=== PATIENT | female | born 1945 | race Caucasian/White ===

== ENCOUNTER 2017-03-03 07:49 | Inpatient (IN) | payer MEDICARE, OTHER ==
[~2017-03-03] VITALS: Ht 167.6 cm; Wt 61.2 kg
--- NOTE | 2017-03-03 07:53 | NUR ---
BIB [facility]. PT IS A 71 Y/O FEMALE CAME FROM HOME. C/O RIGHT HIP PAIN S/P FALL APPROXIMATELY 30 MINS THIS MORNING, WHILE GARDENING. PT IS SPEAKING IN FULL SENTENCES. PAIN 10/10 VIA RIGHT HIP. MD HOUSE AT BEDSIDE AWARE/PERFORMING MSE AT THIS TIME. HX: HTN [NON-COMPLIANT WITH MEDICATION] WCTM PT. WAITING FOR FURTHER PLAN OF CARE
[2017-03-03] MEDS ORDERED: CHOL20004 PO (07:59)
[2017-03-03] MEDS ORDERED: MELA5TAB PO (07:59)
[2017-03-03] MEDS ORDERED: FLUO20CA36 PO (07:59)
[2017-03-03] MEDS ORDERED: ASPI81TA31 PO (07:59)
[2017-03-03] MEDS ORDERED: METO-306 PO (07:59)
[2017-03-03] MEDS ORDERED: HYDROMORPHONE 1 MG/1 ML DISP.SYRIN IV ONE (08:15)
[2017-03-03] MEDS ORDERED: ONDANSETRON 4 MG/2 ML VIAL IV ONE (08:15)
[2017-03-03] MEDS ORDERED: IV NORMAL SALINE 1000 ML BAG IV ONE (08:15)
[2017-03-03] MEDS ORDERED: HYDROMORPHONE 1 MG/1 ML DISP.SYRIN ONE (08:27)
[2017-03-03] MEDS ORDERED: ONDANSETRON 4 MG/2 ML VIAL ONE (08:27)
[2017-03-03 08:43] LABS: CREATININE 0.9 mg/dL (0.6-1.3); POTASSIUM 3.9 mmol/L (3.5-5.1)
[2017-03-03 08:49] LABS: BILIRUBIN,DIRECT 0.1 mg/dL (0.0-0.2); BILIRUBIN,TOTAL 0.5 mg/dL (0.2-1.0); TOTAL PROTEIN, SERUM 6.4 g/dL (6.4-8.2)
--- NOTE | 2017-03-03 08:57 | NUR ---
PT WENT TO CT WITH PRODUCT REPRESENTATIVE [employer]IA [employer]. NAD NOTED. VSS. PT APPEARS COMFORTABLE AT THIS TIME.
[2017-03-03 09:09] LABS: BASOPHILS % (AUTO) 0.2 % (0.0-2.0); EOSINOPHILS % (AUTO) 0.5 % (0.0-7.0); HEMATOCRIT 38.2 % (37-47); HEMOGLOBIN 12.7 G/DL (12.0-16.0); LYMPHOCYTES # (AUTO) 0.9 K/UL (0.8-4.8); LYMPHOCYTES % (AUTO) 13.9 % (20.5-51.5); MEAN CORPUSCULAR HGB CONC 33 g/dL (32.0-37.0); MEAN CORPUSCULAR VOLUME 99.1 FL (81.0-99.0); MONOCYTES # (AUTO) 0.5 K/UL (0.1-1.30); MONOCYTES % (AUTO) 7.8 % (0.0-11.0); NEUTROPHILS # (AUTO) 5.3 K/UL (1.8-8.9); NEUTROPHILS % (AUTO) 77.6 % (38.5-71.5); PLATELET COUNT (AUTO) 203 K/UL (150-450); RED BLOOD CELL COUNT(AUTO) 3.85 MIL/UL (4.2-5.4); WHITE BLOOD COUNT (AUTO) 6.7 K/UL (4.0-11.2)
--- NOTE | 2017-03-03 10:08 | NUR ---
ATTEMPTED TO AMBULATE PT PER MD HOUSE'S ORDER. HOWEVER, PT VERBALIZED, "I CAN'T HUN, I CAN'T". PT REFUSED TO AMBULATE AT THIS TIME. MD HOUSE IS AWARE. PT IS NOW PENDING MEDSURG ADMIT.
--- NOTE | 2017-03-03 10:15 | NUR ---
HOME MEDICATION ENVELOPED GIVEN TO PHARMACY PER HOSPITAL PROTOCOL. COPY OF ENVELOPE #[id number] IS IN THE CHART
--- NOTE | 2017-03-03 10:26 | NUR ---
PT IS READY TO MOVE-INPT HOWEVER, ATTEMPTED TO GET BED ASSIGNMENT AT THIS TIME, BUT UNABLE TO OBTAIN BED BECAUSE CHARGE NURSE IS CURRENTLY UNAVAILABLE. PENDING CALL BACK
--- NOTE | 2017-03-03 10:45 | NUR ---
REPORT GIVEN TO NOEL FUNES AWARE OF PT'S CURRENT CONDITION. WILL CONTINUE PLAN OF CARE
[2017-03-03 11:59] VITALS: BP 170/95
[2017-03-03] MEDS ORDERED: ONDANSETRON 4 MG/2 ML VIAL IV PRN (12:30)
[2017-03-03] MEDS ORDERED: ENALAPRILAT DIHYDRATE INJ 2.5 MG in IV NORMAL SALINE 50 ML IV PRN (12:30)
[2017-03-03] MEDS ORDERED: DIAZEPAM 10 MG/2 ML DISP.SYRIN IV PRN (12:30)
[2017-03-03] MEDS ORDERED: MAGNESIUM HYDROXIDE 30 ML LIQUID UDC PO PRN (12:30)
[2017-03-03] MEDS ORDERED: ACETAMINOPHEN 325 MG TABLET PO PRN (12:30)
[2017-03-03 12:54] VITALS: BP 141/72
[2017-03-03] MEDS: HYDROMORPHONE 1 MG/1 ML DISP.SYRIN IV PRN ×2 (13:00→19:45)
[2017-03-03] MEDS ORDERED: hydrALAZINE HCL 20 MG/1 ML VIAL IV PRN (13:00)
[2017-03-03] MEDS: IV 1/2NS 1000 ML 1,000 ML IV PRN (13:06)
--- NOTE | 2017-03-03 14:49 | NUR ---
REPORT RECEIVED FROM NOEL FUNES
[2017-03-03 15:59] VITALS: BP 133/78
--- NOTE | 2017-03-03 17:00 | NUR ---
PER MD ORDERS FOLLY CATHETER INSERTED.
[2017-03-03 20:00] VITALS: BP 150/89
[2017-03-03] MEDS: DOCUSATE SODIUM 100 MG CAPSULE PO SCH (21:00)
[2017-03-03] MEDS ORDERED: NITROGLYCERIN OINT 1 GM PACKET TP PRN (23:00)
[2017-03-04] MEDS: IV 1/2NS 1000 ML 1,000 ML IV PRN ×2 (03:29→18:22)
[2017-03-04 04:30] VITALS: BP 176/95
[2017-03-04] MEDS: HYDROMORPHONE 1 MG/1 ML DISP.SYRIN IV PRN ×5 (05:55→20:47)
--- NOTE | 2017-03-04 06:50 | NUR ---
PT SLEPT INTERMITTENTLY, IN NO ACUTE DISTRESS. PT C/O OF RIGHT HIP PAIN, PAIN MANAGEMENT GIVEN ORDERED, KEPT PT COMFORTABLE. IVF RUNNING, NO INFILTRATION NOTED. SAFETY MEASURES IN PLACE, CALL LIGHT WITHIN REACH, BED ALARM ON. WILL CONTINUE TO MONITOR.
[2017-03-04 06:56] LABS: BILIRUBIN,TOTAL 0.8 mg/dL (0.2-1.0); CREATININE 0.7 mg/dL (0.6-1.3); MAGNESIUM 1.9 mg/dL (1.8-2.4); PHOSPHOROUS 2.5 mg/dL (2.5-4.9); POTASSIUM 3.5 mmol/L (3.5-5.1); TOTAL PROTEIN, SERUM 6.1 g/dL (6.4-8.2)
[2017-03-04] MEDS ORDERED: PANTOPRAZOLE SODIUM 40 MG TABLET.DR PO SCH (07:00)
[2017-03-04 07:14] LABS: BASOPHILS % (AUTO) 0.4 % (0.0-2.0); EOSINOPHILS # (AUTO) 0.1 K/uL (0.0-0.7); EOSINOPHILS % (AUTO) 1.9 % (0.0-7.0); HEMATOCRIT 38.9 % (37-47); LYMPHOCYTES # (AUTO) 1.4 K/UL (0.8-4.8); LYMPHOCYTES % (AUTO) 23.9 % (20.5-51.5); MEAN CORPUSCULAR HEMOGLOBIN 33.5 UUG (27.0-31.0); MEAN CORPUSCULAR HGB CONC 33 g/dL (32.0-37.0); MEAN CORPUSCULAR VOLUME 100.2 FL (81.0-99.0); MONOCYTES # (AUTO) 0.4 K/UL (0.1-1.30); MONOCYTES % (AUTO) 7.1 % (0.0-11.0); NEUTROPHILS % (AUTO) 66.7 % (38.5-71.5); PLATELET COUNT (AUTO) 177 K/UL (150-450); RED BLOOD CELL COUNT(AUTO) 3.89 MIL/UL (4.2-5.4); WHITE BLOOD COUNT (AUTO) 5.9 K/UL (4.0-11.2)
[2017-03-04 07:21] LABS: THYROID STIMULATING HORMONE 2.049 mIU/mL (0.358-3.740)
[2017-03-04] MEDS ORDERED: CHOLECALCIFEROL 1,000 UNIT TABLET PO SCH (09:00)
[2017-03-04] MEDS ORDERED: FLUOXETINE HCL 20 MG CAPSULE PO SCH (09:00)
[2017-03-04] MEDS ORDERED: METOPROLOL SUCCINATE XL 100 MG TAB.SR.24H PO SCH (09:00)
[2017-03-04] MEDS ORDERED: Medication Not On Formulary EA (Cholecalciferol (Vitamin D3) (Vitamin D CAPSULE) 1 CAP) PO SCH (09:00)
[2017-03-04 12:08] VITALS: BP 145/88
--- NOTE | 2017-03-04 12:30 | NUR ---
PATIENT IN BED, COMPLAIN OF SEVERE PAIN 10/10 GENERALIZED. MEDICATION WAS GIVEN FOR COMFORT. I PROVIDED WITH ICE PACKS FOR HER TEMPORAL HEADACHE. PATIENT VERBALIZED EFFECTIVENESS. THORACIS CT SCAN WAS ORDERED BY DR. BARROW. PATIENT WILL BE MEDICATION BEFORE PROCEDURE. V/S WNL. WILL CONTINUE MONITORING.
[2017-03-04 16:10] VITALS: BP 138/85
[2017-03-04] MEDS ORDERED: NICOTINE 14 MG/24HR PATCH TD SCH (18:30)
--- NOTE | 2017-03-04 19:14 | NUR ---
PATIENT IN BED RESTING. NO S/S OF DISTRESS NOTED. C/O FO PAIN DURING THE DAY. MEDICATED ORDERED. RADIOLOGY CALLED FOR GIVE REPORT OF THE RESULTS, ELAINE TOOK REPORT AND NOTIFIED DR. WEBBER. DVT PUMPS ARE ON. NON AMBULATORY DUE TO HER PAIN. SAFETY AND COMFORT PROVIDED DURING THE DAY. WILL CONTINUE MONITORING.
[2017-03-04 20:00] VITALS: BP 144/87
[2017-03-04] MEDS: DOCUSATE SODIUM 100 MG CAPSULE PO SCH (20:42)
--- NOTE | 2017-03-04 21:05 | NUR ---
PATIENT SPOKE TO DR. OLSON, SHE IS GOING TO BE TRANSFERRED TO [facility], DR. REY WHO IS A NEUROLOGIST IS ACCEPTING HER CASE AND WILL SEE HER FOR FURTHER CARE. REPORT GIVEN TO MARIN RENTERIA FROM [facility]. TRANSFER AND DISCHARGE PROTOCOL FOLLOWED.
--- NOTE | 2017-03-04 22:06 | NUR ---
PATIENT COMPLAINED OF SEVERE PAIN. SHE IS ANXIOUS ABOUT BEING TRANSFERRED TO [facility]. ADMINISTERED 0.5 DILAUDID IVP.
[2017-03-04] MEDS ORDERED: HYDROMORPHONE 1 MG/1 ML DISP.SYRIN IV ONE (22:15)
[2017-03-04] MEDS ORDERED: HYDROMORPHONE 1 MG/1 ML DISP.SYRIN ONE (22:16)
--- NOTE | 2017-03-04 22:59 | NUR ---
RECEIVED PATIENT LAYING IN BED. ALERT AND ORIENTED X'S 4. PATIENT COMPLAINED OF PAIN, WILL REVIEW MEDICATIONS AND WILL GIVE ORDERED. SAFETY INITIATED. CALL LIGHT WITHIN REACH. WILL CONTINUE TO MONITOR.
== END 2017-03-04 22:50 | disposition short-term general hospital (02) | DRG 552 ==
LOC: ER 07:49 → MED 10:56
PROVIDERS: ADMIT Internal Medicine; ATTEND Internal Medicine
DX: S22.049A Unspecified fracture of fourth thoracic vertebra, initial encounter for closed fracture (principal); G62.9 Polyneuropathy, unspecified; W11.XXXA Fall on and from ladder, initial encounter; Y93.H2 Activity, gardening and landscaping; Y92.007 Garden or yard of unspecified non-institutional (private) residence as the place of occurrence of the external cause; I11.9 Hypertensive heart disease without heart failure; I25.10 Atherosclerotic heart disease of native coronary artery without angina pectoris; F17.210 Nicotine dependence, cigarettes, uncomplicated; Z79.82 Long term (current) use of aspirin; K57.90 Diverticulosis of intestine, part unspecified, without perforation or abscess without bleeding; D25.9 Leiomyoma of uterus, unspecified; Z87.442 Personal history of urinary calculi; M06.9 Rheumatoid arthritis, unspecified; Q76.5 Cervical rib; M51.24 Other intervertebral disc displacement, thoracic region; M51.16 Intervertebral disc disorders with radiculopathy, lumbar region; M50.30 Other cervical disc degeneration, unspecified cervical region; M48.06 Spinal stenosis, lumbar region; T14.8 Other injury of unspecified body region; J98.4 Other disorders of lung; T79.6XXA Traumatic ischemia of muscle, initial encounter
CPT/HCPCS: 36415; 70030-TC; 70450; 71010; 72125; 72131; 83605; 83735; 84100; 84443; 85025; 85730; 87040; 93005; A4663; J0360; J1170; J2405; J3360; J3490; J7030

== ENCOUNTER 2018-10-17 23:20 | Inpatient (IN) | payer MEDICARE, MEDICAID ==
[~2018-10-17] VITALS: Ht 165.1 cm; Wt 62.6 kg
[~2018-10-17 23:20] MED LIST: ASPI81TA31 PO; CHOL20004 PO; CLOP75TA15 PO; FLUO20CA36 PO; MELA5TAB PO; METO-358 PO
--- NOTE | 2018-10-17 23:50 | NUR ---
Pt ambulated to ER with c/o palpitations & nausea that started 2 hrs prior to arrival. Pt also states she had shortness of breath. Denies chest pain. Pt placed on monitoring analyst, showing atrial fibrillation w RVR. Notified . SA02 99% room air. Safety measures implemented. ER MD at bedside.
[2018-10-18] MEDS ORDERED: IV NORMAL SALINE 1000 ML BAG IV ONE
[2018-10-18] MEDS ORDERED: ONDANSETRON 4 MG/2 ML VIAL ONE ×2 (00:02→00:04)
[2018-10-18] MEDS ORDERED: DILTIAZEM HCL 25 MG IV ONE ×3 (00:02→00:47)
[2018-10-18 00:11] LABS: BASOPHILS % (AUTO) 0.7 % (0.0-2.0); EOSINOPHILS # (AUTO) 0.1 K/uL (0.0-0.7); EOSINOPHILS % (AUTO) 1.4 % (0.0-7.0); HEMATOCRIT 43.4 % (31.2-41.9); HEMOGLOBIN 14.9 g/dL (10.9-14.3); LYMPHOCYTES % (AUTO) 39.2 % (20.5-51.5); MEAN CORPUSCULAR HEMOGLOBIN 33.5 uug (24.7-32.8); MEAN CORPUSCULAR HGB CONC 34 g/dL (32.3-35.6); MEAN CORPUSCULAR VOLUME 97.7 fL (75.5-95.3); MONOCYTES # (AUTO) 0.5 K/uL (2.0-10.0); MONOCYTES % (AUTO) 10.2 % (0.0-11.0); NEUTROPHILS # (AUTO) 2.4 K/uL (1.8-8.9); NEUTROPHILS % (AUTO) 48.5 % (38.5-71.5); PLATELET COUNT (AUTO) 210 K/uL (179-408); RED BLOOD CELL COUNT(AUTO) 4.44 MIL/uL (3.63-4.92)
[2018-10-18] MEDS ORDERED: ONDANSETRON 4 MG/2 ML VIAL IV ONE (00:15)
[2018-10-18] MEDS ORDERED: DILTIAZEM HCL 25 MG IV IV ONE ×2 (00:15)
[2018-10-18 00:18] LABS: CARBON DIOXIDE 26 mmol/L (21-32); CHLORIDE 100 mmol/L (98-107); CREATININE 0.9 mg/dL (0.6-1.3); GLUCOSE 121 mg/dL (74-106); UREA NITROGEN, BLOOD 18 mg/dL (7-18)
[2018-10-18 00:42] LABS: ALANINE AMINOTRANSFERASE 39 U/L (14-59); ALKALINE PHOSPHATASE 117 U/L (50-136); ASPARTATE AMINOTRANSFERASE 40 U/L (15-37); BILIRUBIN,DIRECT 0.1 mg/dL (0.0-0.2); BILIRUBIN,TOTAL 0.3 mg/dL (0.2-1.0)
[2018-10-18] MEDS ORDERED: METO100T14 PO (00:44)
[2018-10-18] MEDS ORDERED: HYDR25TA4 PO (00:44)
[2018-10-18] MEDS ORDERED: DILTIAZEM HCL IV 125 MG in IV DEXTROSE 5% 100 ML IV PRN ×2 (00:45→01:15)
[2018-10-18] MEDS ORDERED: DILTIAZEM HCL 50 MG IV ONE (00:47)
--- NOTE | 2018-10-18 00:55 | NUR ---
Dr. Miri REMY MD speaking to Micah Fonseca NP, on telephone.
--- NOTE | 2018-10-18 01:06 | NUR ---
Pt. admitted to [facility] ([facility] BED 1) , under care of Micah Fonseca NP. Diagnosis: Atrial Fibrillation with RVR Belongs List completed Report given to nurse
[2018-10-18] MEDS ORDERED: POTASSIUM BICARBONATE/CIT AC 25 MEQ TABLET.EFF ONE (01:08)
[2018-10-18] MEDS ORDERED: POTASSIUM BICARBONATE/CIT AC 25 MEQ TABLET.EFF PO ONE (01:15)
[2018-10-18] MEDS ORDERED: ACETAMINOPHEN 325 MG TABLET PO PRN (01:15)
[2018-10-18] MEDS ORDERED: ONDANSETRON 4 MG/2 ML VIAL IV PRN (01:15)
[2018-10-18] MEDS ORDERED: MAGNESIUM HYDROXIDE 30 ML LIQUID UDC PO PRN (01:15)
[2018-10-18] MEDS ORDERED: HYDROCODONE/APAP 5-325MG TABLET PO PRN (01:15)
[2018-10-18] MEDS ORDERED: Z GUARD REMEDY PASTE 57 GM TUBE TOP PRN (01:15)
[2018-10-18] MEDS ORDERED: TEMAZEPAM 7.5 MG CAPSULE PO PRN (01:15)
[2018-10-18] MEDS ORDERED: DIGOXIN 500 MCG/2 ML AMP ONE (01:25)
[2018-10-18] MEDS ORDERED: DIGOXIN 500 MCG/2 ML AMP IV ONE (01:30)
--- NOTE | 2018-10-18 01:50 | NUR ---
Titrated Cardizem to 15 mg/hr per ER MD verbal order. see IV spreadsheet.
[2018-10-18 02:05] VITALS: BP 137/95
--- NOTE | 2018-10-18 02:05 | NUR ---
ADMITTED FROM ER VIA [facility], WITH ADMITTING DX OF ATRIAL FIBRILLATION WITH RVR. AWAKE, ALERT & ORIENTED X3. ON CARDIZEM DRIP @ 15 MG/HR ON RFA. PLACED ON O2 @ 2LNC W/ O2 SAT OF 100%. DENIES CHEST DISCOMFORTS. WATCHED PT CLOSELY.
--- NOTE | 2018-10-18 02:30 | NUR ---
DECREASED CARDIZEM DRIP TO 10MG/HR, HR-55/MIN, SR. THEN TO 5MG/HR @ 0245.
--- NOTE | 2018-10-18 02:50 | NUR ---
TURNED OFF CARDIZEM DRIP HR-53-55/MIN, SR, BP STABLE.
[2018-10-18 03:00] VITALS: BP 108/66
[2018-10-18 04:00] VITALS: BP 109/66
--- NOTE | 2018-10-18 06:00 | NUR ---
REMAINS SLEEPING. C-SCOPE SINUS JORDAN HR-48. BP STABLE.
[2018-10-18] MEDS: PANTOPRAZOLE SODIUM 40 MG TABLET.DR PO SCH (06:21)
[2018-10-18 08:00] VITALS: BP 130/81
--- NOTE | 2018-10-18 08:00 | NUR ---
Orientation with MARIN Braga. All charting and assessment reviewed by me.
--- NOTE | 2018-10-18 08:00 | NUR ---
Patient OOB early this morning to void on the commode. Stable gait. She is awake and alert, orientation x's 4. Afebrile, VSS. SB on monitor HR 54/min. Resp even and unlabored without distress noted. Lungs clear apical and bases bilat. Abd soft + bowel sounds. Has last BM yesterday at home. No co pain. Zachary Braga RN
--- NOTE | 2018-10-18 08:30 | NUR ---
Patient BS 173, and regular insulin 3 units given per sliding scale per do. Temp 99.3 orally. SR on monitor with occasional PVCS. On 02 2L NC. Resp rate mid 30s. Lungs clear apical and diminished at bases bilat. Abd soft positive bowel sounds. IV midline right upper arm in place. Patient eating breakfast, good appetite. No co pain. Patient has DTI sacral, and lazaro anal redness. Zachary Braga RN
[2018-10-18] MEDS: CHOLECALCIFEROL 1,000 UNIT TABLET PO SCH (08:52)
[2018-10-18] MEDS ORDERED: CLOPIDOGREL 75 MG TABLET PO SCH (09:00)
[2018-10-18] MEDS: METOPROLOL TARTRATE 50 MG TABLET PO SCH ×2 (09:00→16:07)
--- NOTE | 2018-10-18 09:30 | NUR ---
Patient daughter at bedside, making inquiry regarding patient culture results, all cultures negative, daughter aware. Zachary Braga RN
--- NOTE | 2018-10-18 11:53 | NUR ---
Full telephone SBAR report given to CONNER Garnica 2nd floor.
--- NOTE | 2018-10-18 12:20 | NUR ---
Pt transferred to room 225-T via wheelchair with telemetry box on. All belongings reviewed and brought with the pt. Pt stable and nad noted upon leaving the unit.
--- NOTE | 2018-10-18 12:25 | NUR ---
pt received from [facility] via wheel chair in stable condition.
[2018-10-18 15:09] VITALS: BP 113/62
[2018-10-18] MEDS: APIXABAN 5 MG TABLET PO SCH (16:06)
[2018-10-18 20:00] VITALS: BP 111/44
[2018-10-19 04:52] VITALS: BP 115/75
[2018-10-19] MEDS: PANTOPRAZOLE SODIUM 40 MG TABLET.DR PO SCH (06:06)
[2018-10-19 06:35] LABS: BASOPHILS % (AUTO) 0.9 % (0.0-2.0); EOSINOPHILS # (AUTO) 0.1 K/uL (0.0-0.7); EOSINOPHILS % (AUTO) 1.8 % (0.0-7.0); HEMATOCRIT 39.8 % (31.2-41.9); HEMOGLOBIN 13.7 g/dL (10.9-14.3); LYMPHOCYTES # (AUTO) 1.5 K/uL (20.0-40.0); LYMPHOCYTES % (AUTO) 49.5 % (20.5-51.5); MEAN CORPUSCULAR HGB CONC 35 g/dL (32.3-35.6); MEAN CORPUSCULAR VOLUME 98.5 fL (75.5-95.3); MONOCYTES # (AUTO) 0.3 K/uL (2.0-10.0); MONOCYTES % (AUTO) 9.6 % (0.0-11.0); NEUTROPHILS # (AUTO) 1.2 K/uL (1.8-8.9); NEUTROPHILS % (AUTO) 38.2 % (38.5-71.5); PLATELET COUNT (AUTO) 192 K/uL (179-408); RED BLOOD CELL COUNT(AUTO) 4.04 MIL/uL (3.63-4.92)
[2018-10-19 06:45] LABS: CARBON DIOXIDE 29 mmol/L (21-32); CHLORIDE 106 mmol/L (98-107); CREATININE 0.7 mg/dL (0.6-1.3); GLUCOSE 94 mg/dL (74-106); PHOSPHOROUS 3.6 mg/dL (2.5-4.9); UREA NITROGEN, BLOOD 14 mg/dL (7-18)
[2018-10-19 06:46] LABS: CHOLESTEROL 207 mg/dL (<200); HDL CHOLESTEROL 93 mg/dL (40-60); TRIGLYCERIDES 62 MG/DL (30-150)
--- NOTE | 2018-10-19 06:49 | NUR ---
PATIENT AWAKE IN BED. SLEPT WELL. VSS. CALL LIGHT IN REACH. ALL NEEDS ATTENDED.
--- NOTE | 2018-10-19 07:26 | NUR ---
Patient resting comfortably in bed. No signs of distress at this time. Denies chest pain or palpitations. Patient is ambulatory, a/ox4, BRP. Call light within reach of patient. Will continue to monitor throughout shift.
[2018-10-19] MEDS: METOPROLOL TARTRATE 50 MG TABLET PO SCH (08:05)
[2018-10-19] MEDS: CHOLECALCIFEROL 1,000 UNIT TABLET PO SCH (08:07)
[2018-10-19] MEDS: APIXABAN 5 MG TABLET PO SCH (08:08)
[2018-10-19 08:58] VITALS: BP 140/55
[2018-10-19] MEDS ORDERED: ASPIRIN EC 81 MG TABLET.DR PO SCH (09:00)
[2018-10-19] MEDS ORDERED: NICOTINE 14 MG/24HR PATCH TD SCH (09:30)
[2018-10-19] MEDS ORDERED: ASPI81TA31 PO (11:39)
[2018-10-19] MEDS ORDERED: APIX5TAB4 PO (11:39)
[2018-10-19 11:41] VITALS: BP 128/67
--- NOTE | 2018-10-19 13:26 | NUR ---
patient discharged at this time in stable condition. no signs of distress. no complaints of chest pain or palpitations. IV-access disconnected, ID-band taken off. Prescriptions given to patient. Discharge instructions/educations provided to patient. Safety measures implemented. Patient's friend is patient's form of transportation home. patient is ambulatory. a/ox4 and discharged from [facility] safely.
== END 2018-10-19 13:26 | disposition home or self-care (01) | DRG 310 ==
LOC: ER 23:22 → CCU 10-18 01:26 → TELE 10-18 12:20 → MED 10-18 15:34
PROVIDERS: ADMIT Nurse Practitioner Acute Care; ATTEND Nurse Practitioner Acute Care
PROC: 3E033RZ Introduction of Antiarrhythmic into Peripheral Vein, Percutaneous Approach (ICD-10-PCS; principal; 2018-10-18)
DX: I48.0 Paroxysmal atrial fibrillation (principal); E87.6 Hypokalemia; I73.9 Peripheral vascular disease, unspecified; G62.9 Polyneuropathy, unspecified; I10 Essential (primary) hypertension; F32.9 Major depressive disorder, single episode, unspecified; F17.210 Nicotine dependence, cigarettes, uncomplicated; Z86.718 Personal history of other venous thrombosis and embolism; Z95.820 Peripheral vascular angioplasty status with implants and grafts; Z79.82 Long term (current) use of aspirin; Z79.899 Other long term (current) drug therapy; Z79.02 Long term (current) use of antithrombotics/antiplatelets
CPT/HCPCS: 36415; 70030-TC; 71045; 83735; 84100; 84443; 85025; 85730; 93005; 93307; A4663; G0378; J1160; J2405; J3490; J7030; J7060

== ENCOUNTER 2018-11-17 11:29 | Emergency (ER) | payer MEDICARE, MEDICAID ==
[~2018-11-17] VITALS: Ht 167.6 cm; Wt 67.1 kg
[~2018-11-17 11:29] MED LIST changes: +APIX5TAB4 PO; -CLOP75TA15 PO; -FLUO20CA36 PO; +HYDR25TA4 PO; -MELA5TAB PO; -METO-358 PO; +METO100T14 PO
[2018-11-17 12:18] LABS: BASOPHILS # (AUTO) 0.1 K/uL (0.0-8.0); BASOPHILS % (AUTO) 2.3 % (0.0-2.0); EOSINOPHILS % (AUTO) 0.3 % (0.0-7.0); HEMATOCRIT 44.3 % (31.2-41.9); HEMOGLOBIN 15.3 g/dL (10.9-14.3); LYMPHOCYTES # (AUTO) 1.3 K/uL (20.0-40.0); LYMPHOCYTES % (AUTO) 40.2 % (20.5-51.5); MEAN CORPUSCULAR HEMOGLOBIN 33.6 uug (24.7-32.8); MEAN CORPUSCULAR HGB CONC 35 g/dL (32.3-35.6); MEAN CORPUSCULAR VOLUME 96.9 fL (75.5-95.3); MONOCYTES # (AUTO) 0.3 K/uL (2.0-10.0); MONOCYTES % (AUTO) 8.3 % (0.0-11.0); NEUTROPHILS # (AUTO) 1.5 K/uL (1.8-8.9); NEUTROPHILS % (AUTO) 48.9 % (38.5-71.5); PLATELET COUNT (AUTO) 216 K/uL (179-408); RED BLOOD CELL COUNT(AUTO) 4.57 MIL/uL (3.63-4.92); WHITE BLOOD COUNT (AUTO) 3.2 K/uL (3.8-11.8)
[2018-11-17 12:27] LABS: CARBON DIOXIDE 30 mmol/L (21-32); CHLORIDE 102 mmol/L (98-107); CREATININE 0.7 mg/dL (0.6-1.3); GLUCOSE 98 mg/dL (74-106); POTASSIUM 3.6 mmol/L (3.5-5.1); UREA NITROGEN, BLOOD 16 mg/dL (7-18)
[2018-11-17 12:35] LABS: ALANINE AMINOTRANSFERASE 20 U/L (14-59); ALKALINE PHOSPHATASE 75 U/L (50-136); ASPARTATE AMINOTRANSFERASE 8 U/L (15-37); BILIRUBIN,DIRECT 0.2 mg/dL (0.0-0.2); BILIRUBIN,TOTAL 0.8 mg/dL (0.2-1.0); TOTAL PROTEIN, SERUM 7.1 g/dL (6.4-8.2)
--- NOTE | 2018-11-17 13:05 | NUR ---
PT IS IN ROOM #2B. DR MURILLO EVALUATED THE PT.
--- NOTE | 2018-11-17 13:31 | NUR ---
PT WAS D/C'd TO HOME. D/C INSTRUCTIONS GIVEN TO THE PT.
[2018-11-17 13:35] VITALS: BP 141/78
== END 2018-11-17 13:36 | disposition home or self-care (01) ==
LOC: ER 11:29
DX: I10 Essential (primary) hypertension (principal); I48.91 Unspecified atrial fibrillation; F17.200 Nicotine dependence, unspecified, uncomplicated; Z79.82 Long term (current) use of aspirin; Z79.899 Other long term (current) drug therapy; Z86.73 Personal history of transient ischemic attack (TIA), and cerebral infarction without residual deficits
CPT/HCPCS: 36415; 70030-TC; 85025; 85730; 93005; A4663

== ENCOUNTER 2018-11-17 11:41 | Emergency (ER) | payer MEDICARE, MEDICAID ==
--- NOTE | 2018-11-17 11:45 | NUR ---
PT WAS REGISTERED TWICE BY ER ADMITTING.
== END 2018-11-17 11:48 | disposition left against medical advice (07) ==
LOC: ER 11:47
DX: Z53.21 Procedure and treatment not carried out due to patient leaving prior to being seen by health care provider (principal)

== ENCOUNTER 2019-02-19 14:20 | Emergency (ER) | payer MEDICARE, MEDICAID ==
[~2019-02-19] VITALS: Ht 167.6 cm; Wt 63.5 kg
[2019-02-19] MEDS ORDERED: CLON0.5T12 PO (14:37)
[2019-02-19] MEDS ORDERED: ZOLP10TA2 PO (14:37)
[2019-02-19 14:50] LABS: BASOPHILS % (AUTO) 1.3 % (0.0-2.0); EOSINOPHILS # (AUTO) 0.1 K/uL (0.0-0.7); EOSINOPHILS % (AUTO) 1.5 % (0.0-7.0); HEMATOCRIT 43.2 % (31.2-41.9); HEMOGLOBIN 14.5 g/dL (10.9-14.3); LYMPHOCYTES # (AUTO) 1.2 K/uL (20.0-40.0); LYMPHOCYTES % (AUTO) 33.7 % (20.5-51.5); MEAN CORPUSCULAR HEMOGLOBIN 33.6 uug (24.7-32.8); MEAN CORPUSCULAR HGB CONC 34 g/dL (32.3-35.6); MEAN CORPUSCULAR VOLUME 100.3 fL (75.5-95.3); MONOCYTES # (AUTO) 0.4 K/uL (2.0-10.0); NEUTROPHILS # (AUTO) 1.9 K/uL (1.8-8.9); NEUTROPHILS % (AUTO) 53.5 % (38.5-71.5); PLATELET COUNT (AUTO) 232 K/uL (179-408); RED BLOOD CELL COUNT(AUTO) 4.31 MIL/uL (3.63-4.92); WHITE BLOOD COUNT (AUTO) 3.6 K/uL (3.8-11.8)
--- NOTE | 2019-02-19 14:50 | NUR ---
PT IS IN ROOM #2A. DR ORTEGA EVALUATED THE PT.
[2019-02-19 14:57] LABS: CARBON DIOXIDE 28 mmol/L (21-32); CHLORIDE 103 mmol/L (98-107); POTASSIUM 4.1 mmol/L (3.5-5.1)
[2019-02-19 14:58] LABS: CREATININE 0.8 mg/dL (0.6-1.3); GLUCOSE 100 mg/dL (74-106); UREA NITROGEN, BLOOD 18 mg/dL (7-18)
[2019-02-19 15:03] LABS: ALANINE AMINOTRANSFERASE 19 U/L (14-59); ALKALINE PHOSPHATASE 72 U/L (50-136); ASPARTATE AMINOTRANSFERASE 14 U/L (15-37); BILIRUBIN,DIRECT 0.1 mg/dL (0.0-0.2); BILIRUBIN,TOTAL 0.6 mg/dL (0.2-1.0); TOTAL PROTEIN, SERUM 6.8 g/dL (6.4-8.2)
--- NOTE | 2019-02-19 15:10 | NUR ---
Pt received on bed. alert and oriented x4. states 6/10 pain occipital to temporal shooting headache intermittently lasting for 1-2minutes since 4AM. denies n/v Pt offered pain medications but refused. not in distress. Kept warm and comfortable. Will monitor accordingly.
--- NOTE | 2019-02-19 15:41 | NUR ---
PT WAS D/C'd TO HOME. D/C INSTRUCTIONS GIVEN TO THE PT.
[2019-02-19 15:43] VITALS: BP 136/79
== END 2019-02-19 15:45 | disposition home or self-care (01) ==
LOC: ER 14:20
DX: R51 Headache (principal); D72.819 Decreased white blood cell count, unspecified; I10 Essential (primary) hypertension; I48.91 Unspecified atrial fibrillation; F17.200 Nicotine dependence, unspecified, uncomplicated; Z79.82 Long term (current) use of aspirin; Z79.899 Other long term (current) drug therapy
CPT/HCPCS: 36415; 70030-TC; 70450; 85025; 93005; A4663

== ENCOUNTER 2019-03-10 10:58 | Emergency (ER) | payer MEDICARE, MEDICAID ==
[~2019-03-10] VITALS: Ht 167.6 cm; Wt 63.5 kg
[~2019-03-10 10:58] MED LIST changes: +CLON0.5T12 PO; +ZOLP10TA2 PO
--- NOTE | 2019-03-10 11:16 | NUR ---
Dr Reese at the bedside for MSE.
[2019-03-10] MEDS ORDERED: HYDROMORPHONE 1 MG/1 ML DISP.SYRIN ONE (11:42)
[2019-03-10] MEDS ORDERED: ONDANSETRON 4 MG/2 ML VIAL ONE (11:42)
[2019-03-10] MEDS ORDERED: ONDANSETRON 4 MG/2 ML VIAL IM ONE (11:45)
[2019-03-10] MEDS ORDERED: HYDROMORPHONE 1 MG/1 ML DISP.SYRIN IM ONE (11:45)
[2019-03-10 12:01] VITALS: BP 145/87
--- NOTE | 2019-03-10 12:01 | NUR ---
Patient discharged to home in stable conditon. Written and verbal after care instructions given. Patient verbalizes understanding of instructions.Pt to follow up w/ Dr kumar(ortho MD). Pt left ER w/ steady gait accompained by family.
== END 2019-03-10 12:03 | disposition home or self-care (01) ==
LOC: ER 10:58
DX: S52.531A Colles' fracture of right radius, initial encounter for closed fracture (principal); I10 Essential (primary) hypertension; I48.91 Unspecified atrial fibrillation; F32.9 Major depressive disorder, single episode, unspecified; F17.200 Nicotine dependence, unspecified, uncomplicated; Z79.82 Long term (current) use of aspirin; Z79.899 Other long term (current) drug therapy; X50.1XXA Overexertion from prolonged static or awkward postures, initial encounter; Y93.89 Activity, other specified; Y92.89 Other specified places as the place of occurrence of the external cause; Y99.8 Other external cause status
CPT/HCPCS: 29125; 73110; 73130; 96372 ×2; 99283; J1170; J2405; A4663

== ENCOUNTER 2024-09-19 19:19 | Inpatient (IN) | payer MEDICARE, OTHER ==
[~2024-09-19] VITALS: Ht 162.6 cm; Wt 63.5 kg
[~2024-09-19 19:19] MED LIST changes: -CLON0.5T12 PO; +CLON0.5T4 PO
[2024-09-19 20:09] LABS: BASOPHILS % (AUTO) 0.6 % (0.0-2.0); EOSINOPHILS % (AUTO) 0.1 % (0.0-7.0); HEMATOCRIT 41.7 % (31.2-41.9); HEMOGLOBIN 14.7 g/dL (10.9-14.3); LYMPHOCYTES # (AUTO) 1.7 K/uL (0.8-4.8); LYMPHOCYTES % (AUTO) 31.7 % (20.5-51.5); MEAN CORPUSCULAR HEMOGLOBIN 33.6 uug (24.7-32.8); MEAN CORPUSCULAR HGB CONC 35 g/dL (32.3-35.6); MEAN CORPUSCULAR VOLUME 95.6 fL (75.5-95.3); MONOCYTES # (AUTO) 0.4 K/uL (0.1-1.30); MONOCYTES % (AUTO) 7.9 % (0.0-11.0); NEUTROPHILS # (AUTO) 3.2 K/uL (1.8-8.9); NEUTROPHILS % (AUTO) 59.7 % (38.5-71.5); PLATELET COUNT (AUTO) 286 K/uL (179-408); RED BLOOD CELL COUNT(AUTO) 4.37 MIL/uL (3.63-4.92); RED CELL DISTRIBUTION WIDTH 13.3 % (12.3-17.7); WHITE BLOOD COUNT (AUTO) 5.3 K/uL (3.8-11.8)
[2024-09-19 20:23] LABS: CALCIUM 9.8 mg/dL (8.5-10.1); CARBON DIOXIDE 23 mmol/L (21-32); CHLORIDE 99 mmol/L (98-107); CREATININE 0.9 mg/dL (0.6-1.3); GLUCOSE 111 mg/dL (74-106); POTASSIUM 3.2 mmol/L (3.5-5.1); SODIUM SERUM 139 mmol/L (136-145); UREA NITROGEN, BLOOD 10 mg/dL (7-18)
[2024-09-19 20:27] LABS: DIFFERENTIAL COMMENT 1
[2024-09-19 20:31] LABS: ALANINE AMINOTRANSFERASE 13 U/L (14-59); ALBUMIN 4.4 g/dL (3.4-5.0); ALKALINE PHOSPHATASE 92 U/L (50-136); ASPARTATE AMINOTRANSFERASE 14 U/L (15-37); BILIRUBIN,DIRECT 0.3 mg/dL (0.0-0.2); LIPASE 23 U/L (16-77); TOTAL PROTEIN, SERUM 7.9 g/dL (6.4-8.2)
[2024-09-19] MEDS: ACETAMINOPHEN 325 MG TABLET PO ONE (22:09)
[2024-09-19] MEDS: PANTOPRAZOLE SODIUM 40 MG VIAL IV ONE (22:15)
[2024-09-19] MEDS: ONDANSETRON 4 MG/2 ML VIAL IV ONE (22:15)
[2024-09-19] MEDS ORDERED: ONDANSETRON 4 MG/2 ML VIAL ONE (22:18)
[2024-09-19] MEDS ORDERED: PANTOPRAZOLE SODIUM 40 MG VIAL ONE (22:18)
[2024-09-19] MEDS: HALOPERIDOL LACTATE 5 MG/1 ML VIAL IM ONE (23:00)
[2024-09-19] MEDS: LORAZEPAM 2 MG/1 ML VIAL IV ONE (23:00)
[2024-09-19] MEDS ORDERED: HALOPERIDOL LACTATE 5 MG/1 ML VIAL ONE (23:03)
[2024-09-19] MEDS ORDERED: LORAZEPAM 2 MG/1 ML VIAL ONE (23:04)
[2024-09-19] MEDS: METOPROLOL TARTRATE 50 MG TABLET PO ONE (23:45)
[2024-09-19] MEDS ORDERED: HYDROCODONE/APAP 5-325MG TABLET PO PRN (23:45)
[2024-09-19] MEDS ORDERED: ONDANSETRON 4 MG/2 ML VIAL IV PRN (23:45)
[2024-09-19] MEDS ORDERED: ACETAMINOPHEN 325 MG TABLET PO PRN (23:45)
[2024-09-20] MEDS ORDERED: MORPHINE SULFATE 2 MG/1 ML DISP.SYRIN IV ONE (01:15)
[2024-09-20] MEDS: MORPHINE SULFATE 2 MG/1 ML DISP.SYRIN IV ONE (02:22)
[2024-09-20 04:25] VITALS: BP 122/80; TEMP 97.3; O2SAT 96
[2024-09-20] MEDS ORDERED: ONDANSETRON 4 MG/2 ML VIAL IV PRN (05:00)
[2024-09-20 06:53] LABS: BASOPHILS % (AUTO) 0.4 % (0.0-2.0); EOSINOPHILS % (AUTO) 0.2 % (0.0-7.0); HEMATOCRIT 37.9 % (31.2-41.9); HEMOGLOBIN 13.4 g/dL (10.9-14.3); LYMPHOCYTES # (AUTO) 1.4 K/uL (0.8-4.8); LYMPHOCYTES % (AUTO) 32.8 % (20.5-51.5); MEAN CORPUSCULAR HEMOGLOBIN 33.8 uug (24.7-32.8); MEAN CORPUSCULAR HGB CONC 35 g/dL (32.3-35.6); MEAN CORPUSCULAR VOLUME 95.9 fL (75.5-95.3); MONOCYTES # (AUTO) 0.4 K/uL (0.1-1.30); MONOCYTES % (AUTO) 9.2 % (0.0-11.0); NEUTROPHILS # (AUTO) 2.5 K/uL (1.8-8.9); NEUTROPHILS % (AUTO) 57.4 % (38.5-71.5); PLATELET COUNT (AUTO) 238 K/uL (179-408); RED BLOOD CELL COUNT(AUTO) 3.96 MIL/uL (3.63-4.92); RED CELL DISTRIBUTION WIDTH 13.1 % (12.3-17.7); WHITE BLOOD COUNT (AUTO) 4.4 K/uL (3.8-11.8)
[2024-09-20] MEDS: PANTOPRAZOLE SODIUM 40 MG TABLET.DR PO SCH (07:00)
[2024-09-20 07:15] LABS: DIFFERENTIAL COMMENT 1
[2024-09-20 07:16] LABS: ALANINE AMINOTRANSFERASE 13 U/L (14-59); ALBUMIN 3.5 g/dL (3.4-5.0); ALKALINE PHOSPHATASE 75 U/L (50-136); ASPARTATE AMINOTRANSFERASE 5 U/L (15-37); BILIRUBIN,TOTAL 0.9 mg/dL (0.2-1.0); CALCIUM 8.6 mg/dL (8.5-10.1); CARBON DIOXIDE 29 mmol/L (21-32); CHLORIDE 102 mmol/L (98-107); CHOLESTEROL 177 mg/dL (<200); CREATININE 0.7 mg/dL (0.6-1.3); GLUCOSE 105 mg/dL (74-106); HDL CHOLESTEROL 67 mg/dL (40-60); PHOSPHOROUS 4.3 mg/dL (2.5-4.9); POTASSIUM 3.2 mmol/L (3.5-5.1); SODIUM SERUM 142 mmol/L (136-145); TOTAL PROTEIN, SERUM 6.9 g/dL (6.4-8.2); TRIGLYCERIDES 82 MG/DL (30-150); UREA NITROGEN, BLOOD 11 mg/dL (7-18)
[2024-09-20] MEDS ORDERED: POTASSIUM CHLORIDE 20 MEQ POWDER PACKET GT ONE (07:45)
[2024-09-20] MEDS ORDERED: MAG HYDROX/AL HYDROX/SIMETH 30 ML LIQUID UDC PO PRN (07:45)
[2024-09-20 08:34] LABS: THYROID STIMULATING HORMONE 2.537 mIU/mL (0.358-3.740)
[2024-09-20 08:54] LABS: C-REACTIVE PROTEIN < 0.10 mg/dL (0.00-0.30)
[2024-09-20] MEDS: APIXABAN 5 MG TABLET PO SCH (09:00)
[2024-09-20] MEDS: CHOLECALCIFEROL 1,000 UNIT TABLET PO SCH (09:00)
[2024-09-20] MEDS: HYDROCHLOROTHIAZIDE 25 MG TABLET PO SCH (09:00)
[2024-09-20] MEDS: ASPIRIN 81 MG TAB.CHEW PO SCH (09:00)
[2024-09-20] MEDS: POTASSIUM CHLORIDE 50 ML IV SCH (09:34)
[2024-09-20 09:42] VITALS: BP 133/73; TEMP 97.6; O2SAT 96
[2024-09-20] MEDS: POTASSIUM CHLORIDE 20 MEQ TAB.PRT.SR PO ONE (09:55)
[2024-09-20] MEDS: MORPHINE SULFATE 2 MG/1 ML DISP.SYRIN IV PRN (12:17)
[2024-09-20] MEDS ORDERED: VITAMINS A AND D OINT 42 GM TUBE TP PRN (12:45)
[2024-09-20 13:17] VITALS: BP 132/69; TEMP 98.5; O2SAT 97
[2024-09-20 17:02] VITALS: BP 131/66; TEMP 98.2; O2SAT 96
[2024-09-20] MEDS ORDERED: METO-358 PO (18:11)
[2024-09-20] MEDS ORDERED: LOSA50TA39 PO (18:12)
[2024-09-20] MEDS ORDERED: CLOP75TA33 PO (18:12)
[2024-09-20] MEDS ORDERED: DULO20CA PO (18:22)
[2024-09-20] MEDS ORDERED: ESCI20TA PO (18:22)
[2024-09-20] MEDS ORDERED: TRAZ-182 PO (18:22)
[2024-09-20] MEDS ORDERED: DILT60TA35 PO (18:22)
[2024-09-20] MEDS ORDERED: DEXL60CA3 PO (18:22)
[2024-09-20] MEDS ORDERED: GABA300T25 PO (18:22)
[2024-09-20] MEDS ORDERED: FAMO20TA8 PO (18:22)
[2024-09-20] MEDS ORDERED: PITA1TAB PO (18:22)
[2024-09-20] MEDS: DOCUSATE SODIUM 100 MG CAPSULE PO SCH (20:29)
[2024-09-20] MEDS ORDERED: DOCUSATE SODIUM 250 MG CAPSULE PO SCH (21:00)
[2024-09-20 21:57] VITALS: BP 141/71; TEMP 98.1; O2SAT 96
[2024-09-21 00:15] VITALS: BP 140/81; TEMP 98; O2SAT 99
[2024-09-21 07:45] VITALS: BP 149/87; TEMP 97.7; O2SAT 98
[2024-09-21 15:44] LABS: *BILIRUBIN,URIN NEGATIVE (NEGATIVE); *BLOOD, URINE 1+ (NEGATIVE); *CLARITY,URINE SLIGHTLY CLOUDY (CLEAR); *COLOR,URINE YELLOW (YELLOW); *KETONES,URINE NEGATIVE (NEGATIVE); *PROTEIN,URINE NEGATIVE (NEGATIVE); *UROBILINOGEN,URINE 0.2 E.U./dl (NORMAL); LEUKOCYTE ESTERASE ,URINE 3+ (NEGATIVE); NITRITE, URINE POSITIVE (NEGATIVE); UGLUCOSE NEGATIVE (NEGATIVE)
[2024-09-21 16:00] VITALS: BP 142/85; TEMP 98.3; O2SAT 97
[2024-09-21 16:10] LABS: BACTERIA,URINE MANY /HPF (NONE SEEN); WBC,URINE 20-50 /HPF (0-3)
[2024-09-21 16:11] LABS: SQUAMOUS EPITHELIAL CELL,UR FEW /HPF (NONE SEEN)
[2024-09-21 19:00] VITALS: BP 145/86; TEMP 98.9; O2SAT 99
[2024-09-21] MEDS ORDERED: POLYVINYL ALCOHOL OPHT DROPS 15 ML BOTTLE ONE (22:51)
[2024-09-21] MEDS: POLYVINYL ALCOHOL OPHT DROPS 15 ML BOTTLE EACHEYE PRN (23:27)
[2024-09-22] VITALS: BP 150/86; TEMP 97.9; O2SAT 97
[2024-09-22] MEDS: ZOLPIDEM 5 MG TABLET PO PRN (03:30)
[2024-09-22 04:00] VITALS: BP 153/89; TEMP 98.4; O2SAT 94
[2024-09-22 08:00] VITALS: BP 97/56; TEMP 98.2; O2SAT 99
[2024-09-22] MEDS: DILTIAZEM HCL 60 MG TABLET PO SCH (08:58)
[2024-09-22] MEDS: LOSARTAN POTASSIUM 50 MG TABLET PO SCH (08:59)
[2024-09-22] MEDS: DULOXETINE 20 MG CAPSULE.DR PO SCH (08:59)
[2024-09-22] MEDS: ESCITALOPRAM OXALATE 10 MG TABLET PO SCH (09:00)
[2024-09-22] MEDS: GABAPENTIN 300 MG CAPSULE PO SCH (09:00)
[2024-09-22] MEDS: CLOPIDOGREL 75 MG TABLET PO SCH (09:00)
[2024-09-22] MEDS: METOPROLOL SUCCINATE XL 50 MG TAB.SR.24H PO SCH (09:00)
[2024-09-22] MEDS: CEFTRIAXONE 1 G in IV DEXTROSE 5% 50 ML IV SCH (10:14)
[2024-09-22 12:00] VITALS: BP 152/97; TEMP 97.7; O2SAT 98
[2024-09-22 16:00] VITALS: BP 136/69; TEMP 98.2; O2SAT 99
[2024-09-22] MEDS: TRAZODONE 50 MG TABLET PO SCH (20:29)
[2024-09-22] MEDS: ATORVASTATIN 10 MG TABLET PO SCH (20:29)
[2024-09-22 20:30] VITALS: BP 143/70; TEMP 98; O2SAT 98
[2024-09-22] MEDS ORDERED: FAMOTIDINE 20 MG TABLET PO SCH (21:00)
[2024-09-23] VITALS: BP 137/82; TEMP 98.2; O2SAT 98
[2024-09-23 05:00] VITALS: BP 150/93; TEMP 98.5; O2SAT 96
[2024-09-23 07:35] VITALS: BP 150/76; TEMP 98.1; O2SAT 98
[2024-09-23 07:46] LABS: BASOPHILS % (AUTO) 0.8 % (0.0-2.0); EOSINOPHILS % (AUTO) 0.8 % (0.0-7.0); HEMATOCRIT 38.1 % (31.2-41.9); HEMOGLOBIN 13.3 g/dL (10.9-14.3); LYMPHOCYTES # (AUTO) 1.6 K/uL (0.8-4.8); LYMPHOCYTES % (AUTO) 44.9 % (20.5-51.5); MEAN CORPUSCULAR HEMOGLOBIN 33.7 uug (24.7-32.8); MEAN CORPUSCULAR HGB CONC 35 g/dL (32.3-35.6); MEAN CORPUSCULAR VOLUME 96.8 fL (75.5-95.3); MONOCYTES # (AUTO) 0.3 K/uL (0.1-1.30); MONOCYTES % (AUTO) 8.6 % (0.0-11.0); NEUTROPHILS # (AUTO) 1.6 K/uL (1.8-8.9); NEUTROPHILS % (AUTO) 44.9 % (38.5-71.5); PLATELET COUNT (AUTO) 215 K/uL (179-408); RED BLOOD CELL COUNT(AUTO) 3.94 MIL/uL (3.63-4.92); RED CELL DISTRIBUTION WIDTH 13.2 % (12.3-17.7); WHITE BLOOD COUNT (AUTO) 3.5 K/uL (3.8-11.8)
[2024-09-23 07:54] LABS: CALCIUM 8.9 mg/dL (8.5-10.1); CARBON DIOXIDE 30 mmol/L (21-32); CHLORIDE 103 mmol/L (98-107); CREATININE 0.8 mg/dL (0.6-1.3); GLUCOSE 102 mg/dL (74-106); MAGNESIUM 2.3 mg/dL (1.8-2.4); PHOSPHOROUS 4.5 mg/dL (2.5-4.9); POTASSIUM 3.6 mmol/L (3.5-5.1); SODIUM SERUM 143 mmol/L (136-145); UREA NITROGEN, BLOOD 12 mg/dL (7-18)
[2024-09-23 07:58] LABS: DIFFERENTIAL COMMENT 1
[2024-09-23] MEDS: AMIODARONE HCL IV 150 MG in IV DEXTROSE 5% 100 ML IV ONE (11:16)
[2024-09-23 11:35] VITALS: BP_SYST 116; BP_SYST 154; BP_DIAS 52; BP_DIAS 77; TEMP 97.9; O2SAT 96
[2024-09-23] MEDS: AMIODARONE HCL IV 450 MG in IV DEXTROSE 5% 250 ML IV PRN (11:50)
[2024-09-23] MEDS: DILTIAZEM HCL 60 MG TABLET PO SCH (13:00)
[2024-09-23 16:00] VITALS: BP 135/70; TEMP 97.9; O2SAT 99
[2024-09-23] MEDS: TOBRAMYCIN 0.3% OPHT DROP 5 ML BOTTLE RIGHTEYE SCH (16:15)
[2024-09-23 19:30] VITALS: BP 133/75; TEMP 98.1; O2SAT 98
[2024-09-24] VITALS: BP 153/76; TEMP 98.1; O2SAT 97
[2024-09-24] MEDS: CLONAZEPAM 0.5 MG TABLET PO PRN (03:57)
[2024-09-24 04:00] VITALS: BP 117/62; TEMP 98.2; O2SAT 98
[2024-09-24 07:24] LABS: BASOPHILS % (AUTO) 0.8 % (0.0-2.0); EOSINOPHILS % (AUTO) 1.1 % (0.0-7.0); HEMATOCRIT 38.9 % (31.2-41.9); HEMOGLOBIN 13.5 g/dL (10.9-14.3); LYMPHOCYTES # (AUTO) 1.8 K/uL (0.8-4.8); LYMPHOCYTES % (AUTO) 43.5 % (20.5-51.5); MEAN CORPUSCULAR HEMOGLOBIN 33.8 uug (24.7-32.8); MEAN CORPUSCULAR HGB CONC 35 g/dL (32.3-35.6); MEAN CORPUSCULAR VOLUME 97.7 fL (75.5-95.3); MONOCYTES # (AUTO) 0.4 K/uL (0.1-1.30); MONOCYTES % (AUTO) 8.7 % (0.0-11.0); NEUTROPHILS # (AUTO) 1.9 K/uL (1.8-8.9); NEUTROPHILS % (AUTO) 45.9 % (38.5-71.5); PLATELET COUNT (AUTO) 226 K/uL (179-408); RED BLOOD CELL COUNT(AUTO) 3.98 MIL/uL (3.63-4.92); RED CELL DISTRIBUTION WIDTH 13.4 % (12.3-17.7); WHITE BLOOD COUNT (AUTO) 4.1 K/uL (3.8-11.8)
[2024-09-24 07:42] LABS: CALCIUM 8.6 mg/dL (8.5-10.1); CARBON DIOXIDE 30 mmol/L (21-32); CHLORIDE 103 mmol/L (98-107); CREATININE 0.8 mg/dL (0.6-1.3); GLUCOSE 90 mg/dL (74-106); MAGNESIUM 2.3 mg/dL (1.8-2.4); PHOSPHOROUS 3.9 mg/dL (2.5-4.9); POTASSIUM 3.8 mmol/L (3.5-5.1); SODIUM SERUM 140 mmol/L (136-145); UREA NITROGEN, BLOOD 14 mg/dL (7-18)
[2024-09-24 07:45] LABS: DIFFERENTIAL COMMENT 1
[2024-09-24 08:00] VITALS: BP 132/56; TEMP 97.2; O2SAT 98
[2024-09-24] MEDS: AMIODARONE HCL 200 MG TABLET PO SCH (08:48)
[2024-09-24 12:00] VITALS: BP 107/57; TEMP 97.8; O2SAT 97
[2024-09-24] MEDS: TOBRAMYCIN/DEXAMETH OPHT DROP 2.5 ML BOTTLE EACHEYE SCH (14:42)
[2024-09-24 16:00] VITALS: BP 128/68; TEMP 97.2; O2SAT 98
[2024-09-24 19:00] VITALS: BP 104/60; TEMP 98.1; O2SAT 96
[2024-09-25 06:00] VITALS: BP 149/75; TEMP 97.4; O2SAT 95
[2024-09-25] MEDS: ENSURE ENLIVE (VAN) 240 ML LIQUID PO SCH (09:13)
[2024-09-25 11:32] VITALS: BP 132/61; TEMP 97.6; O2SAT 99
[2024-09-25] MEDS ORDERED: NITR100C11 PO (11:47)
[2024-09-25] MEDS ORDERED: TOBR2.5D EACHEYE (11:47)
[2024-09-25] MEDS ORDERED: AMIO200T6 PO (11:47)
[2024-09-25] MEDS ORDERED: AMIO100T4 PO (11:48)
[2024-09-25] MEDS ORDERED: AMIO200T5 PO (11:50)
[2024-09-25 15:49] VITALS: BP 122/59; TEMP 97.6; O2SAT 98
== END 2024-09-25 18:00 | disposition home health service (06) | DRG 690 ==
LOC: ER 19:19 → TELE3 23:41 → TELE-TD3 09-23 10:09 → MEDSURG3 09-24 09:00
PROVIDERS: ADMIT Internal Medicine; ATTEND Nurse Practitioner Acute Care
DX: N39.0 Urinary tract infection, site not specified (principal); I77.1 Stricture of artery; I70.223 Atherosclerosis of native arteries of extremities with rest pain, bilateral legs; R07.9 Chest pain, unspecified; I48.0 Paroxysmal atrial fibrillation; Z95.820 Peripheral vascular angioplasty status with implants and grafts; G89.29 Other chronic pain; Z79.82 Long term (current) use of aspirin; Z89.611 Acquired absence of right leg above knee; I25.10 Atherosclerotic heart disease of native coronary artery without angina pectoris; F32.A Depression, unspecified; I10 Essential (primary) hypertension; F17.210 Nicotine dependence, cigarettes, uncomplicated; G54.6 Phantom limb syndrome with pain; E87.6 Hypokalemia; Z79.01 Long term (current) use of anticoagulants; Z79.02 Long term (current) use of antithrombotics/antiplatelets; H10.9 Unspecified conjunctivitis
CPT/HCPCS: 36415; 70450; 71045; 83690; 83735; 84100; 84443; 84484; 85025; 86140; 93005; A4663; G0378; J0282; J0696; J1630; J2060; J2270; J2405; J2470; J3480; J7050